=== PATIENT | female | born 1980 | race Caucasian/White ===

== ENCOUNTER 2020-11-16 12:45 | Emergency (ER) | payer SELFPAY ==
[~2020-11-16] VITALS: Ht 167.6 cm; Wt 100.0 kg
[~2020-11-16 12:45] MED LIST: MECL12.5 PO
[2020-11-16 12:55] VITALS: BP 165/95
[2020-11-16] MEDS ORDERED: LIDOcaine Viscous 15ml cup MM STA (14:44)
[2020-11-16] MEDS ORDERED: dexamethasone sod phosphate 10mg/ml inj PO STA (14:44)
[2020-11-16] MEDS ORDERED: AZIT500T9 PO (14:52)
== END 2020-11-16 15:07 | disposition home or self-care (01) ==
LOC: ER 12:46
DX: J02.9 Acute pharyngitis, unspecified (principal); Z72.89 Other problems related to lifestyle; Z88.0 Allergy status to penicillin; Z79.899 Other long term (current) drug therapy
CPT/HCPCS: 99283; J1100

== ENCOUNTER 2020-11-18 10:18 | Emergency (ER) | payer OTHER ==
[~2020-11-18] VITALS: Ht 167.6 cm; Wt 107.5 kg
[~2020-11-18 10:18] MED LIST changes: +AZIT500T9 PO
[2020-11-18] MEDS ORDERED: LIDOcaine Viscous 15ml cup MM STA (11:34)
[2020-11-18] MEDS ORDERED: dexamethasone sod phosphate 10mg/ml inj PO STA (11:34)
[2020-11-18 11:44] VITALS: BP 138/101
--- NOTE | 2020-11-18 11:55 | NUR ---
patient has a reddened, agry appearing throat
[2020-11-18 12:52] LABS: MONOTEST NEGATIVE (Neg)
== END 2020-11-18 12:14 | disposition home or self-care (01) ==
LOC: ER 10:18
DX: J02.9 Acute pharyngitis, unspecified (principal); Z72.89 Other problems related to lifestyle; Z88.0 Allergy status to penicillin; Z79.899 Other long term (current) drug therapy
CPT/HCPCS: 36415; 86308; 99283; J1100

== ENCOUNTER 2020-11-20 02:08 | Emergency (ER) | payer MEDICAID, OTHER ==
[~2020-11-20] VITALS: Ht 167.6 cm; Wt 100.0 kg
[2020-11-20] MEDS ORDERED: dexamethasone sod phosphate 10mg/ml inj IV STA (06:34)
[2020-11-20] MEDS ORDERED: clindamycin 600mg/D5W 50ml 50 ML IV ONE (06:35)
[2020-11-20] MEDS ORDERED: normal saline 1000ML IV soln IV ONE (06:35)
[2020-11-20] MEDS ORDERED: ketorolac trometh. 30mg/ml inj. IV ONE (06:40)
[2020-11-20] MEDS ORDERED: iohexol 300mg/ml 100ml inj. ONE (07:11)
[2020-11-20 07:55] LABS: BASOPHILS # (AUTO) 0.1 X10'3 (0-0.2); BASOPHILS % (AUTO) 0.8 % (0-1); EOSINOPHILS # (AUTO) 0.1 X10'3 (0-0.9); EOSINOPHILS % (AUTO) 0.9 % (0-6); HEMATOCRIT 30.9 % (35.0-45.0); HEMOGLOBIN 9.5 g/dl (12.0-16.0); LYMPHOCYTES # (AUTO) 1.3 X10'3 (1.1-4.8); LYMPHOCYTES % (AUTO) 10.2 % (21-51); MEAN CORPUSCULAR HEMOGLOBIN 22.5 PG (27.0-31.0); MEAN CORPUSCULAR HGB CONC 30.9 g/dL (33.0-36.5); MEAN CORPUSCULAR VOLUME 72.9 FL (78-98); MONOCYTES # (AUTO) 1.4 X10'3 (0-0.9); MONOCYTES % (AUTO) 10.4 % (2-12); NEUTROPHILS # (AUTO) 10.2 X10'3 (1.8-7.7); NEUTROPHILS % (AUTO) 77.7 % (42-75); PLATELET COUNT 351 X10'3 (140-440); RED BLOOD COUNT 4.23 X10'6 (4.20-5.60); RED CELL DISTRIBUTION WIDTH 18.2 % (11.5-14.5); WHITE BLOOD COUNT 13.1 X10'3 (4.5-11.0)
[2020-11-20 08:11] LABS: ALANINE AMINOTRANSFERASE 16 U/L (12-78); ALBUMIN 3.2 G/DL (3.4-5.0); ALBUMIN/GLOBULIN RATIO 0.7 (1.1-1.5); ALKALINE PHOSPHATASE 96 IU/L (46-116); ANION GAP 11 (8-16); ASPARTATE AMINO TRANSFERASE 9 U/L (10-37); BILIRUBIN,TOTAL 0.3 MG/DL (0.1-1.0); BLOOD UREA NITROGEN 9 MG/DL (7-18); CALCIUM 8.6 MG/DL (8.5-10.1); CHLORIDE 103 MMOL/L (99-107); CREATININE 0.69 MG/DL (0.40-0.90); GLUCOSE 83 MG/DL (70-104); MAGNESIUM 1.8 MG/DL (1.5-2.4); POTASSIUM 3.3 MMOL/L (3.5-5.1); SODIUM 140 MMOL/L (135-145); TOTAL PROTEIN 7.7 G/DL (6.4-8.2); eGFR > 90 ML/MIN
[2020-11-20 09:51] LABS: CLARITY,URINE CLEAR (Clear); COLOR,URINE STRAW (Yellow); GLUCOSE, URINE NEGATIVE (Neg); KETONES,URINE NEGATIVE (Neg); LEUKOCYTE ESTERASE ,URINE NEGATIVE (Neg); NITRITES, URINE NEGATIVE (Neg); OCCULT BLOOD,URINE NEGATIVE (Neg); PROTEIN,URINE NEGATIVE (Neg); UA COLLECTION TYPE CLN CATCH MIDSTREAM; UROBILINOGEN,URINE 0.2 E.U/dL (0.2-1.0)
[2020-11-20] MEDS ORDERED: morphine 4 MG/ML inj SYRINge IV ONE (11:00)
[2020-11-20] MEDS ORDERED: CLIN150C8 PO (11:00)
[2020-11-20 11:35] VITALS: BP 121/80
== END 2020-11-20 12:02 | disposition home or self-care (01) ==
LOC: ER 02:08
DX: J36 Peritonsillar abscess (principal); Z72.89 Other problems related to lifestyle; Z88.0 Allergy status to penicillin; Z79.2 Long term (current) use of antibiotics; Z79.899 Other long term (current) drug therapy
CPT/HCPCS: 36415; 42700; 70491; 71045; 80053; 81003; 83605; 83735; 84145; 85025; 87040; 87077; 87081; 87880; 93005; 96374; 96375; 99285; J1885; J2270; J7030; Q9967; J3490